=== PATIENT | female | born 1960 | race Caucasian/White ===

== ENCOUNTER 2021-01-02 05:51 | Observation (INO) | payer MEDICARE ==
[2021-01-02] MEDS ORDERED: methylPREDNISolone Sodium Succinate 125 MG/2 ML SDV IVPUSH ONE (05:54)
[2021-01-02] MEDS ORDERED: Albuterol/Ipratropium 3.0-0.5 MG/3 ML Neb Soln NEB ONE (05:54)
[2021-01-02] MEDS ORDERED: Albuterol/Ipratropium 3.0-0.5 MG/3 ML Neb Soln ONE (05:58)
--- NOTE | 2021-01-02 06:03 | EDM.PDOC ---
ED HPI GENERAL MEDICAL PROBLEM - General Chief Complaint: Respiratory Problem Stated Complaint: CAN'T BREATH Time Seen by Provider: 01/02/21 05:53 Source of Information: Reports: Patient History Limitations: Reports: Respiratory Distress - History of Present Illness INITIAL COMMENTS - FREE TEXT/NARRATIVE: Joceline is a 60-year-old female presenting to the ED for evaluation of difficulty breathing. She states that tonight she became so short of breath that she could even get 1 or 2 words out. She does have a history for COPD and continues to smoke 1/2 pack of cigarettes a day. She also was reportedly having an upcoming coronary angiogram for some heart issues. She presents tachypneic, in respiratory distress with tachycardia, diaphoresis, and course Rales bilaterally. She is quite anxious. Patient does live in a home that has air conditioning. After receiving the DuoNeb she was able to talk a little bit more. The patient reports that she had a onset of dyspnea that woke her from sleep around 3:30 or 4 AM this morning. The more she tried to take a deep breath the last she was able to take 1 making her more and more anxious. Patient is also experiencing significant tachycardia with heart rate in 130s. - Related Data Allergies Allergy/AdvReac Type Severity Reaction Status Date / Time Iodinated Contrast Media Allergy Airway Verified 01/02/21 05:55 Tightness prochlorperazine Allergy Hives Verified 01/02/21 05:54 [From Compazine] Home Meds: Home Meds DULoxetine [Cymbalta] 60 mg PO DAILY 01/02/21 [History] LORazepam [Ativan] 1 mg PO Q6H 01/02/21 [History] Levothyroxine [Synthroid] 88 mcg PO ACBREAKFAST 01/02/21 [History] predniSONE [Prednisone] 4 mg PO DAILY 01/02/21 [History] ED ROS GENERAL - Review of Systems Review Of Systems: See Below Constitutional: Reports: Diaphoresis HEENT: Reports: No Symptoms Respiratory: Reports: Shortness of Breath, Cough Cardiovascular: Reports: Chest Pain, Palpitations Endocrine: Reports: No Symptoms GI/Abdominal: Reports: No Symptoms : Reports: No Symptoms Musculoskeletal: Reports: No Symptoms Skin: Reports: No Symptoms Neurological: Reports: No Symptoms Psychiatric: Reports: Anxiety Hematologic/Lymphatic: Reports: No Symptoms Immunologic: Reports: No Symptoms ED EXAM, GENERAL - Physical Exam Exam: See Below Exam Limited By: Respiratory Distress General Appearance: Alert, Anxious, Severe Distress Eye Exam: Bilateral Eye: EOMI, PERRL Nose: Normal Inspection Throat/Mouth: Normal Inspection, Normal Oropharynx, Normal Voice, No Airway Compromise Head: Atraumatic, Normocephalic Neck: Normal Inspection, Supple Respiratory/Chest: Decreased Breath Sounds (Markedly diminished breath sounds bilaterally), Rales (Coarse Rales throughout the lung smith bilaterally), Accessory Muscle Use, Retractions, Prolonged Expiration Cardiovascular: Normal Peripheral Pulses, Regular Rate, Rhythm, Tachycardia Peripheral Pulses: 2+: Radial (L), Radial (R) GI/Abdominal: Normal Bowel Sounds, Soft, Non-Tender Extremities: Normal Inspection, No Pedal Edema Neurological: Alert, Oriented, Normal Cognition, No Motor/Sensory Deficits Psychiatric: Normal Affect, Anxious Skin Exam: Warm, Dry, Diaphoretic, Pallor. No: Cyanosis Lymphatic: No Adenopathy #1 Interpretation EKG Date: 01/02/21 Time: 06:00 Rhythm: NSR Rate (Beats/Min): 121 [place]: LAD-Left [place] Deviation P-Wave: Enlarged (Left atrial enlargement) QRS: Normal (Poor R wave progression in the precordial leads. LVH by voltage criteria.) ST-T: Normal (Nonspecific ST-T changes.) QT: Normal Comparison: NA - No Prior EKG Course - Vital Signs Last Recorded V/S: Last Vital Signs Temp 35.3 C L 01/02/21 06:15 Pulse 130 H 01/02/21 06:15 Resp 35 H 01/02/21 06:15 BP 174/85 H 01/02/21 06:15 Pulse Ox 76 L 01/02/21 06:15 - Orders/Labs/Meds Orders: Active Orders 24 hr Category Date Time Status EKG Documentation Completion [RC] ASDIRECTED Care 01/02/21 05:54 Active RT Aerosol Therapy [RC] ASDIRECTED Care 01/02/21 05:54 Active COVID-19/FLU A+B/RSV [MOLEC] Stat Lab 01/02/21 07:06 Ordered Isolation [COMM] Stat Oth 01/02/21 07:07 Ordered EKG 12 Lead [EK] Routine Ther 01/02/21 05:54 Ordered Labs: Laboratory Tests 01/02/21 01/02/21 01/02/21 Range/Units 05:56 05:56 06:21 WBC 9.9 (4.5-11.0) K/uL RBC 4.32 (3.30-5.50) M/uL Hgb 13.4 (12.0-15.0) g/dL Hct 41.6 (36.0-48.0) % MCV 96 (80-98) fL MCH 31 (27-31) pg MCHC 32 (32-36) % Plt Count 281 (150-400) K/uL Neut % (Auto) 25.8 L (36-66) % Lymph % (Auto) 61.5 H (24-44) % [place] % (Auto) 9.5 H (2-6) % Eos % (Auto) 2.3 (2-4) % Baso % (Auto) 0.9 (0-1) % Puncture Site Rt radial ABG pH 7.333 L (7.350-7.450) ABG pCO2 43.7 H (35.0-42.0) mmHg ABG pO2 50.5 L (75.0-100.0) mmHg ABG HCO3 22.5 (22.0-26.0) mmol/L ABG Total CO2 20.4 L (21.0-25.0) mmol/L ABG O2 Saturation 82.3 L (95.0-98.0) % ABG O2 Content 14.9 L (15.0-23.0) %vol ABG Base Excess -2.8 mm/L ABG Hemoglobin 13.3 (12.0-16.0) g/dL ABG Oxyhemoglobin 79.6 % ABG Carboxyhemoglobin 2.6 H (0.0-1.6) % ABG Methemoglobin 0.7 % Josue Test Pass O2 Delivery Device Nasal cannula Oxygen Flow Rate 4.0 L Sodium 142 (140-148) mmol/L Potassium 3.4 L (3.6-5.2) mmol/L Chloride 105 (100-108) mmol/L Carbon Dioxide 23 (21-32) mmol/L Anion Gap 17.4 H (5.0-14.0) mmol/L BUN 17 (7-18) mg/dL Creatinine 1.1 H (0.6-1.0) mg/dL Est Cr Clr Drug Dosing 49.55 mL/min Estimated GFR (MDRD) 51 L (>60) Glucose 232 H (74-106) mg/dL Calcium 8.7 (8.5-10.1) mg/dL Total Bilirubin 0.5 (0.2-1.0) mg/dL AST 43 H (15-37) U/L ALT 38 (12-78) U/L Alkaline Phosphatase 115 (46-116) U/L Troponin I < 0.017 (0.000-0.056) ng/mL Total Protein 7.3 (6.4-8.2) g/dL Albumin 3.3 L (3.4-5.0) g/dL Globulin 4.0 H (2.3-3.5) g/dL Albumin/Globulin Ratio 0.8 L (1.2-2.2) Meds: Medications Discontinued Medications Generic Name Dose Route Start Last Admin Trade Name Freq PRN Reason Stop Dose Admin Albuterol/Ipratropium 3 ml 01/02/21 05:54 01/02/21 05:58 Albuterol/Ipratropium 3.0-0.5 Mg/3 Ml Neb Soln NEB 01/02/21 05:55 3 ml ONETIME ONE Administration Methylprednisolone Sodium Succinate 125 mg 01/02/21 05:54 01/02/21 06:09 Methylprednisolone Sodium Succinate 125 Mg/2 Ml Sdv IVPUSH 01/02/21 05:55 125 mg ONETIME ONE Administration - Radiology Interpretation Free Text/Narrative:: I reviewed the 1 view chest x-ray as well as the report. There is hyperinflation of both lungs with basilar atelectasis or scarring. - Re-Assessments/Exams Free Text/Narrative Re-Assessment/Exam: 01/02/21 06:19 patient received a DuoNeb and Solu-Medrol 125 mg IV push with significant improvement in her breathing. I reviewed her EKG which shows sinus tachycardia with nonspecific ST-T changes and LVH and left atrial enlargement by voltage criteria. There was no evidence for ST elevation or significant depression. We did obtain an ABG on 4 L nasal cannula. The patient does not normally wear oxygen at home despite having a history for COPD. 01/02/21 06:43 I did review the patient's labs showing a CBC with a leukocyte count of 9.9, hemoglobin of 13.4, hematocrit of 41.6, and platelet count of 281,000. Her comprehensive metabolic panel shows a sodium 142, potassium 3.4, chloride of 105, bicarbonate of 23, BUN of 17 with a creatinine 1.1 and a glucose of 232. The GFR is calculated at 49.5. Troponin is negative at less than 0.017. An ABG was obtained on 4 L via nasal cannula showing a pH of 7.33, PCO2 of 43.7, PO2 of 50.5, and a bicarb of 22.5 with a carboxyhemoglobin of 2.6 and a oxygenation sat of 82%. Although the patient is improved since receiving the DuoNeb and Solu-Medrol, she is still requiring a fair amount of oxygen to stay above 88%. She is not normally on oxygen at home. A chest x-ray was obtained showing hyperinflation of the lungs 01/02/21 07:08 We will arrange for mission of the patient for COPD exacerbation. She is still requiring 6 L of oxygen on a nonrebreather. I discussed the case with Jordon Alcala MD who will evaluate the patient for admission. Departure - Departure Time of Disposition: 07:09 Disposition: Admitted As Inpatient 67 Clinical Impression: Acute exacerbation of chronic obstructive pulmonary disease (COPD) - Discharge Information Referrals: PCP,None [Primary Care Provider] - Forms: ED Department Discharge Sepsis Event Note (ED) - Focused Exam Vital Signs: Vital Signs Temp Pulse Resp BP Pulse Ox 01/02/21 06:15 35.3 C L 130 H 35 H 174/85 H 76 L - Problem List & Annotations (1) Acute exacerbation of chronic obstructive pulmonary disease (COPD) SNOMED Code(s): 930911090 Code(s): J44.1 - CHRONIC OBSTRUCTIVE PULMONARY DISEASE W (ACUTE) EXACERBATION Status: Acute Priority: High Current Visit: Yes - Problem List Review Problem List Initiated/Reviewed/Updated: Yes - My Orders Last 24 Hours: My Active Orders 01/02/21 05:54 EKG Documentation Completion [RC] ASDIRECTED RT Aerosol Therapy [RC] ASDIRECTED EKG 12 Lead [EK] Routine 01/02/21 07:06 COVID-19/FLU A+B/RSV [MOLEC] Stat 01/02/21 07:07 Isolation [COMM] Stat - Assessment/Plan Last 24 Hours: My Active Orders 01/02/21 05:54 EKG Documentation Completion [RC] ASDIRECTED RT Aerosol Therapy [RC] ASDIRECTED EKG 12 Lead [EK] Routine 01/02/21 07:06 COVID-19/FLU A+B/RSV [MOLEC] Stat 01/02/21 07:07 Isolation [COMM] Stat
--- NOTE | 2021-01-02 07:05 | CRLCR ---
For Patients: As a result of the Century Cures Act, medical imaging exams and procedure reports are released immediately into your electronic medical record. You may view this report before your referring provider. If you have questions, please contact your health care provider. Indication: COPD, shortness of breath Comparison: None available. Technique: Single AP view chest Findings: There is hyperinflation and chronic interstitial change. There are increased interstitial markings likely representing pulmonary edema with basilar atelectasis versus scar. There is no pneumothorax or pleural effusion. The cardiac silhouette is mildly prominent. The bony thorax is grossly intact. Impression: Hyperinflation and chronic interstitial changes with mildly increased interstitial markings likely representing pulmonary edema with basilar atelectasis versus scar. Dictated by Dante Fox MD @ 01/02/2021 7:05:[address] Dante Fox @ Jan 02 2021 7:05AM
[2021-01-02 08:03] LABS: CORONAVIRUS COVID-19 NAA NEGATIVE (NEGATIVE)
--- NOTE | 2021-01-02 09:24 | PCM.HP.2 ---
H&P History of Present Illness - General Date of Service: 01/02/21 Admit Problem/Dx: Admission Diagnosis/Problem Admission Diagnosis/Problem Acute exacerbation of chronic obstructive airways disease Source of Information: Patient, Family, Provider History Limitations: Reports: No Limitations - History of Present Illness Initial Comments - Free Text/Narative: CC: I couldn't breath HPI: Joceline presents to the emergency room today with acute onset of shortness of breath that woke her from sleep early this morning. She does report feeling a little bit short of breath yesterday in the afternoon and evening while she was out fishing but this seemed to get better in the evening. 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 She does report some cough that is slightly more than usual as well as some yellow sticky sputum that started this morning. She is not aware of any fevers. No reports of chest pain or pleuritic chest pain. She did travel up here several days ago from [place]. No obvious sick contacts. She has had her Covid vaccinations. No obvious triggers for this event other than possibly all of the smoke in the atmosphere. No recent nausea or abdominal pain. No change in bowel or bladder habits. No new medications. Work-up in the emergency room revealed acute respiratory failure with hypoxia and initially a fairly high supplemental oxygen requirement. She had mild CO2 retention with a PCO2 of 43. A nebulizer did improve her situation with some. Chest x-ray did not suggest pneumonia. The plan is for admission to manage an exacerbation of her COPD possibly secondary to the smoke versus possibly a bronchitis. - Related Data Allergies/Adverse Reactions: Allergies Allergy/AdvReac Type Severity Reaction Status Date / Time Iodinated Contrast Media Allergy Airway Verified 01/02/21 05:55 Tightness prochlorperazine Allergy Hives Verified 01/02/21 05:54 [From Compazine] Home Medications: Home Meds DULoxetine [Cymbalta] 60 mg PO DAILY 01/02/21 [History] LORazepam [Ativan] 1 mg PO Q6H 01/02/21 [History] Levothyroxine [Synthroid] 88 mcg PO ACBREAKFAST 01/02/21 [History] Pantoprazole [ProTONIX] 40 mg PO DAILY 01/02/21 [History] predniSONE [Prednisone] 4 mg PO DAILY 01/02/21 [History] Past Medical History HEENT History: Reports: Impaired Vision Cardiovascular History: Reports: Arrhythmia Respiratory History: Reports: COPD Gastrointestinal History: Reports: GERD 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 exporatory lap Oncologic Surgical History: Reports: Biopsy of Breast, Mastectomy Social & Family History - Family History Cardiac: Reports: [place] (father) : Reports: Renal Disease/Insufficiency (mother with kidney failure) Oncologic: Reports: Lung (sister) - Tobacco Use Tobacco Use Status *Q: Current Every Day Tobacco User Years of Tobacco use: 40 Packs/Tins Daily: 0.1 - Caffeine Use Caffeine Use: Reports: None - Alcohol Use Alcohol Use History: No - Recreational Drug Use Recreational Drug Use: No H&P Review of Systems - Review of Systems: Review Of Systems: See Below Free Text/Narrative: A complete 12 point review of systems was obtained. Pertinent positives and negatives are noted in the history of present illness. All other systems were reviewed and were negative except as noted. Exam - Exam Exam: See Below - Vital Signs Vital Signs: Last Vital Signs Temp 35.3 C L 01/02/21 06:15 Pulse 130 H 01/02/21 06:15 Resp 35 H 01/02/21 06:15 BP 174/85 H 01/02/21 06:15 Pulse Ox 76 L 01/02/21 06:15 Weight: 68.039 kg - Exam Quality Assessment: Supplemental Oxygen General: Alert, Oriented, Cooperative. No: Mild Distress HEENT: Conjunctiva Clear, Mucosa Moist & [place]. No: Scleral Icterus Neck: Supple, Trachea Midline. No: JVD Lungs: Normal Respiratory Effort, Crackles (rare both bases ), Wheezing (rare scattered ). No: Rhonchi Cardiovascular: Regular Rhythm, Tachycardia. No: Systolic Murmur GI/Abdominal Exam: Normal Bowel Sounds, Soft, Non-Tender, No Distention Back Exam: Normal Inspection, Full Range of Motion Extremities: No Pedal Edema. No: Increased Warmth Peripheral Pulses: 2+: Dorsalis Pedis (L), Dorsalis Pedis (R) Skin: Warm, Dry Neuro Extensive - Mental Status: Alert, Oriented x3, Nl Response to Commands Neuro Extensive - Motor, Sensory, Reflexes: No: Dysarthria, Abnormal Motor, Lyndon mor Psychiatric: Alert, Normal Affect - Patient Data Lab Results Last 24 hrs: Laboratory Results - last 24 hr 01/02/21 01/02/21 01/02/21 Range/Units 05:56 05:56 06:21 WBC 9.9 (4.5-11.0) K/uL RBC 4.32 (3.30-5.50) M/uL Hgb 13.4 (12.0-15.0) g/dL Hct 41.6 (36.0-48.0) % MCV 96 (80-98) fL MCH 31 (27-31) pg MCHC 32 (32-36) % Plt Count 281 (150-400) K/uL Neut % (Auto) 25.8 L (36-66) % Lymph % (Auto) 61.5 H (24-44) % [place] % (Auto) 9.5 H (2-6) % Eos % (Auto) 2.3 (2-4) % Baso % (Auto) 0.9 (0-1) % Puncture Site Rt radial ABG pH 7.333 L (7.350-7.450) ABG pCO2 43.7 H (35.0-42.0) mmHg ABG pO2 50.5 L (75.0-100.0) mmHg ABG HCO3 22.5 (22.0-26.0) mmol/L ABG Total CO2 20.4 L (21.0-25.0) mmol/L ABG O2 Saturation 82.3 L (95.0-98.0) % ABG O2 Content 14.9 L (15.0-23.0) %vol ABG Base Excess -2.8 mm/L ABG Hemoglobin 13.3 (12.0-16.0) g/dL ABG Oxyhemoglobin 79.6 % ABG Carboxyhemoglobin 2.6 H (0.0-1.6) % ABG Methemoglobin 0.7 % Josue Test Pass O2 Delivery Device Nasal cannula Oxygen Flow Rate 4.0 L Sodium 142 (140-148) mmol/L Potassium 3.4 L (3.6-5.2) mmol/L Chloride 105 (100-108) mmol/L Carbon Dioxide 23 (21-32) mmol/L Anion Gap 17.4 H (5.0-14.0) mmol/L BUN 17 (7-18) mg/dL Creatinine 1.1 H (0.6-1.0) mg/dL Est Cr Clr Drug Dosing 49.55 mL/min Estimated GFR (MDRD) 51 L (>60) Glucose 232 H (74-106) mg/dL Calcium 8.7 (8.5-10.1) mg/dL Total Bilirubin 0.5 (0.2-1.0) mg/dL AST 43 H (15-37) U/L ALT 38 (12-78) U/L Alkaline Phosphatase 115 (46-116) U/L Troponin I < 0.017 (0.000-0.056) ng/mL Total Protein 7.3 (6.4-8.2) g/dL Albumin 3.3 L (3.4-5.0) g/dL Globulin 4.0 H (2.3-3.5) g/dL Albumin/Globulin Ratio 0.8 L (1.2-2.2) Influenza Type A RNA (NEGATIVE) RSV RNA (INAAT) (NEGATIVE) Influenza Type B RNA (NEGATIVE) SARS-CoV-2 RNA (ANDREW) (NEGATIVE) 01/02/21 Range/Units 07:06 WBC (4.5-11.0) K/uL RBC (3.30-5.50) M/uL Hgb (12.0-15.0) g/dL Hct (36.0-48.0) % MCV (80-98) fL MCH (27-31) pg MCHC (32-36) % Plt Count (150-400) K/uL Neut % (Auto) (36-66) % Lymph % (Auto) (24-44) % [place] % (Auto) (2-6) % Eos % (Auto) (2-4) % Baso % (Auto) (0-1) % Puncture Site ABG pH (7.350-7.450) ABG pCO2 (35.0-42.0) mmHg ABG pO2 (75.0-100.0) mmHg ABG HCO3 (22.0-26.0) mmol/L ABG Total CO2 (21.0-25.0) mmol/L ABG O2 Saturation (95.0-98.0) % ABG O2 Content (15.0-23.0) %vol ABG Base Excess mm/L ABG Hemoglobin (12.0-16.0) g/dL ABG Oxyhemoglobin % ABG Carboxyhemoglobin (0.0-1.6) % ABG Methemoglobin % Josue Test O2 Delivery Device Oxygen Flow Rate L Sodium (140-148) mmol/L Potassium (3.6-5.2) mmol/L Chloride (100-108) mmol/L Carbon Dioxide (21-32) mmol/L Anion Gap (5.0-14.0) mmol/L BUN (7-18) mg/dL Creatinine (0.6-1.0) mg/dL Est Cr Clr Drug Dosing mL/min Estimated GFR (MDRD) (>60) Glucose (74-106) mg/dL Calcium (8.5-10.1) mg/dL Total Bilirubin (0.2-1.0) mg/dL AST (15-37) U/L ALT (12-78) U/L Alkaline Phosphatase (46-116) U/L Troponin I (0.000-0.056) ng/mL Total Protein (6.4-8.2) g/dL Albumin (3.4-5.0) g/dL Globulin (2.3-3.5) g/dL Albumin/Globulin Ratio (1.2-2.2) Influenza Type A RNA Negative (NEGATIVE) RSV RNA (INAAT) Negative (NEGATIVE) Influenza Type B RNA Negative (NEGATIVE) SARS-CoV-2 RNA (ANDREW) Negative (NEGATIVE) Result Diagrams: 01/02/21 05:56 01/02/21 05:56 Imaging Impressions Last 24 hrs: CXR-image personally reviewed-there is hyperinflation with scattered chronic interstitial changes. No effusions. Heart size is normal. #1 Interpretation EKG Date: 01/02/21 Rhythm: NSR Rate (Beats/Min): 121 [place]: Normal P-Wave: Present QRS: Normal ST-T: Normal QT: Normal Comparison: NA - No Prior EKG Sepsis Event Note - Evaluation Sepsis Screening Result: No Definite Risk - Focused Exam Vital Signs: Vital Signs Temp Pulse Resp BP Pulse Ox 01/02/21 06:15 35.3 C L 130 H 35 H 174/85 H 76 L *Q Meaningful Use (ADM) - VTE Risk Assess *Q Each Risk Factor Represents 1 Point: Age 41 - 59 years, Abnormal Pulmonary Fun ction (COPD) Total Score 1 Point Risk Factors: 2 Each Risk Factor Represents 2 Points: Malignancy (present or previous) Total Score 2 Point Risk Factors: 2 Each Risk Factor Represents 3 Points: None Total Score 3 Point Risk Factors: 0 Each Risk Factor Represents 5 Points: None Total Score 5 Point Risk Factors: 0 Venous Thromboembolism Risk Factor Score *Q: 4 - Problem List (1) Acute exacerbation of chronic obstructive pulmonary disease (COPD) SNOMED Code(s): 519566718 ICD Code: J44.1 - CHRONIC OBSTRUCTIVE PULMONARY DISEASE W (ACUTE) EXACERBATION Status: Acute Priority: High Current Visit: Yes (2) Acute respiratory failure with hypoxia SNOMED Code(s): 59727752, 500093320 ICD Code: J96.01 - ACUTE RESPIRATORY FAILURE WITH HYPOXIA Status: Acute Current Visit: Yes (3) Tobacco dependence syndrome SNOMED Code(s): 56153364 ICD Code: F17.200 - NICOTINE DEPENDENCE, UNSPECIFIED, UNCOMPLICATED Status: Chronic Current Visit: Yes (4) HFrEF (heart failure with reduced ejection fraction) SNOMED Code(s): 155980069 ICD Code: I50.20 - UNSPECIFIED SYSTOLIC (CONGESTIVE) HEART FAILURE Status: Chronic Current Visit: Yes Problem List Initiated/Reviewed/Updated: Yes Orders Last 24hrs: Active Orders 24 hr Category Date Time Status Patient Status Manage Transfer [TRANSFER] Routine ADT 01/02/21 09:13 Ordered EKG Documentation Completion [RC] ASDIRECTED Care 01/02/21 05:54 Active RT Aerosol Therapy [RC] ASDIRECTED Care 01/02/21 05:54 Active Isolation [COMM] Stat Oth 01/02/21 07:07 Ordered Resuscitation Status Routine Resus Stat 01/02/21 09:15 Ordered EKG 12 Lead [EK] Routine Ther 01/02/21 05:54 Ordered Assessment/Plan Comment:: ASSESSMENT AND PLAN - COPD with acute exacerbation-possibly secondary to bronchitis versus possibly secondary to environmental exposure to smoke or combination of these 2. She is currently hypoxic and requiring supplemental oxygen. She is improving with smaller O2 requirements now than a couple of hours ago. -Antibiotic coverage with a azithromycin -IV steroids this morning, transition to prednisone this afternoon -Supplement oxygen as needed -Scheduled and as needed nebulizers Heart failure with reduced ejection fraction-recently found to have an ejection fraction of 35% on echocardiogram. Angiogram planned for next week. No evidence on examination to suggest congestive heart failure. -Continue medical management Tobacco dependence- -Encourage cessation History of breast cancer- Maintenance issues - -DVT prophylaxis-SCDs -GI prophylaxis-PPI -Nutrition-regular -Ingram catheter-not indicated CODE STATUS -full code Admission justification -this patient will be referred to observation status to initiate antibiotics and supplemental oxygen but I would anticipate she will be able to discharge tomorrow. Disposition -I anticipate discharge home after the hospital stay Primary care physician -Rosaura Alcala M.D. - Mortality Measure Prognosis:: Good
[2021-01-02] MEDS ORDERED: Albuterol 0.083% 2.5 MG/3 ML Neb Soln NEB PRN (09:43)
[2021-01-02] MEDS ORDERED: Ondansetron 4 MG Tab.DIS PO PRN (09:43)
[2021-01-02] MEDS ORDERED: Non-Formulary Medication 1 Each (Lorazepam [Ativan] 1 MG Tablet) PO SCH (09:43)
[2021-01-02] MEDS ORDERED: Ondansetron 4 MG/2 ML SDV IV PRN (09:43)
[2021-01-02] MEDS ORDERED: Acetaminophen 325 MG Tab PO PRN (09:43)
[2021-01-02] MEDS ORDERED: LORazepam 2 MG/ML SDV IVPUSH PRN (09:43)
[2021-01-02] MEDS ORDERED: Melatonin 3 MG Tab PO PRN (09:43)
[2021-01-02] MEDS ORDERED: Magnesium Hydroxide 400 MG/5 ML Susp 30 ML Cup PO PRN (09:43)
[2021-01-02] MEDS ORDERED: Azithromycin 250 MG Tab PO ONE (10:30)
[2021-01-02] MEDS ORDERED: Potassium Chloride 20 MEQ Tab.ER PO ONE (10:30)
[2021-01-02] MEDS: Albuterol/Ipratropium 3.0-0.5 MG/3 ML Neb Soln NEB SCH ×3 (10:37→21:01)
[2021-01-02] MEDS: Lactobacillus Rhamnosus GG (Probiotic) Cap PO SCH ×2 (10:44→21:02)
[2021-01-02] MEDS: LORazepam 1 MG Tab PO SCH ×3 (10:46→21:02)
[2021-01-02] MEDS ORDERED: predniSONE 20 MG Tab PO ONE (12:00)
[2021-01-02] MEDS: DULoxetine 30 MG Cap PO SCH (14:30)
[2021-01-02] MEDS: Levothyroxine 88 MCG Tab PO SCH (14:31)
[2021-01-02] MEDS: Pantoprazole 40 MG Tab.CR PO SCH (18:27)
[2021-01-03] MEDS: LORazepam 1 MG Tab PO SCH ×4 (03:20→21:38)
[2021-01-03] MEDS: Albuterol/Ipratropium 3.0-0.5 MG/3 ML Neb Soln NEB SCH ×4 (07:03→21:38)
[2021-01-03] MEDS ORDERED: Non-Formulary Medication 1 Each (Levothyroxine [Synthroid] 88 MCG Tablet) PO SCH (07:30)
[2021-01-03] MEDS ORDERED: predniSONE 20 MG Tab PO SCH (08:00)
[2021-01-03] MEDS: Azithromycin 250 MG Tab PO SCH (08:03)
[2021-01-03] MEDS: Lactobacillus Rhamnosus GG (Probiotic) Cap PO SCH ×2 (08:03→20:35)
[2021-01-03] MEDS: DULoxetine 30 MG Cap PO SCH (08:10)
[2021-01-03] MEDS: Levothyroxine 88 MCG Tab PO SCH (08:11)
[2021-01-03] MEDS ORDERED: Non-Formulary Medication 1 Each (Duloxetine [Cymbalta] 60 MG Cap) PO SCH (09:00)
--- NOTE | 2021-01-03 09:56 | PCM.PN ---
- General Info Date of Service: 01/03/21 Subjective Update: Patient had an episode overnight where she became quite short of breath going to the bathroom early in the morning. No chest pain at the time. She did recover after getting back into bed and resting. She has been tachycardic most of the night with heart rates in the 120s. She feels weak and fatigued. Still requiring supplemental oxygen. No fevers. CT pulmonary angiogram was completed today and did not show evidence for pulmonary embolism but did show some pulmonary edema. - Review of Systems Pulmonary: Reports: Shortness of Breath, Cough Cardiovascular: Denies: Chest Pain - Patient Data Vitals - Most Recent: Last Vital Signs Temp 35.6 C L 01/03/21 08:16 Pulse 122 H 01/03/21 08:16 Resp 20 01/03/21 08:16 BP 112/49 L 01/03/21 08:16 Pulse Ox 92 L 01/03/21 08:16 Weight - Most Recent: 68.946 kg I&O - Last 24 Hours: Intake & Output 01/02/21 01/03/21 01/03/21 22:59 06:59 14:59 Intake Total 1160 560 Balance 1160 560 Lab Results Last 24 Hours: Laboratory Results - last 24 hr 01/03/21 01/03/21 01/03/21 Range/Units 04:00 04:00 08:18 WBC 12.6 H (4.5-11.0) K/uL RBC 4.15 (3.30-5.50) M/uL Hgb 12.9 (12.0-15.0) g/dL Hct 39.6 (36.0-48.0) % MCV 95 (80-98) fL MCH 31 (27-31) pg MCHC 33 (32-36) % Plt Count 272 (150-400) K/uL D-Dimer, Quantitative 1492.29 H (0.0-500.0) ng/mL Sodium 141 (140-148) mmol/L Potassium 4.4 (3.6-5.2) mmol/L Chloride 105 (100-108) mmol/L Carbon Dioxide 25 (21-32) mmol/L Anion Gap 11.0 (5.0-14.0) mmol/L BUN 19 H (7-18) mg/dL Creatinine 0.8 (0.6-1.0) mg/dL Est Cr Clr Drug Dosing 68.13 mL/min Estimated GFR (MDRD) > 60 (>60) Glucose 126 H (74-106) mg/dL Calcium 9.0 (8.5-10.1) mg/dL Med Orders - Current: Current Medications Acetaminophen (Acetaminophen 325 Mg Tab) 650 mg PO Q4H PRN PRN Reason: Pain (Mild 1-3)/fever Albuterol (Albuterol 0.083% 2.5 Mg/3 Ml Neb Soln) 2.5 mg NEB Q4H PRN PRN Reason: Shortness Of Breath/wheezing Last Admin: 01/03/21 03:05 Dose: 2.5 mg Documented by: Albuterol/Ipratropium (Albuterol/Ipratropium 3.0-0.5 Mg/3 Ml Neb Soln) 3 ml NEB QIDRT [facility] Last Admin: 01/03/21 07:03 Dose: 3 ml Documented by: Azithromycin (Azithromycin 250 Mg Tab) 250 mg PO DAILY [facility] Last Admin: 01/03/21 08:03 Dose: 250 mg Documented by: Diphenhydramine HCl (Diphenhydramine 50 Mg/Ml Sdv) 50 mg IVPUSH ONETIME ONE Stop: 01/03/21 09:54 Duloxetine HCl (Duloxetine 30 Mg Cap) 60 mg PO DAILY [facility] Last Admin: 01/03/21 08:10 Dose: 60 mg Documented by: Lactobacillus Rhamnosus (Lactobacillus Rhamnosus Gg (Probiotic) Cap) 1 cap PO BID [facility] Last Admin: 01/03/21 08:03 Dose: 1 cap Documented by: Levothyroxine Sodium (Levothyroxine 88 Mcg Tab) 88 mcg PO ACBREAKFAST [facility] Last Admin: 01/03/21 08:11 Dose: 88 mcg Documented by: Lorazepam (Lorazepam 2 Mg/Ml Sdv) 0.5 mg IVPUSH Q4H PRN PRN Reason: Nausea/Vomiting Lorazepam (Lorazepam 1 Mg Tab) 1 mg PO Q6H [facility] Last Admin: 01/03/21 09:21 Dose: 1 mg Documented by: Magnesium Hydroxide (Magnesium Hydroxide 400 Mg/5 Ml Susp 30 Ml Cup) 30 ml PO Q12H PRN PRN Reason: Constipation Melatonin (Melatonin 3 Mg Tab) 9 mg PO BEDTIME PRN PRN Reason: Sleep Methylprednisolone Sodium Succinate (Methylprednisolone Sodium Succinate 125 Mg/2 Ml Sdv) 62.5 mg IVPUSH ONETIME ONE Stop: 01/03/21 09:55 Ondansetron HCl (Ondansetron 4 Mg/2 Ml Sdv) 4 mg IV Q6H PRN PRN Reason: Nausea/Vomiting Ondansetron HCl (Ondansetron 4 Mg Tab.Dis) 4 mg PO Q6H PRN PRN Reason: Nausea able to take PO Pantoprazole Sodium (Pantoprazole 40 Mg Tab.Cr) 40 mg PO ACDINNER [facility] Last Admin: 01/02/21 18:27 Dose: 40 mg Documented by: Prednisone (Prednisone 20 Mg Tab) 40 mg PO WITHBREAKFAST [facility] Last Admin: 01/03/21 08:03 Dose: 40 mg Documented by: Senna/Docusate Sodium (Docusate Sodium/Sennosides 50-8.6 Mg Tab) 1 tab PO BID PRN PRN Reason: Constipation Discontinued Medications Albuterol/Ipratropium (Albuterol/Ipratropium 3.0-0.5 Mg/3 Ml Neb Soln) 3 ml NEB ONETIME ONE Stop: 01/02/21 05:55 Last Admin: 01/02/21 05:58 Dose: 3 ml Documented by: Albuterol/Ipratropium (Albuterol/Ipratropium 3.0-0.5 Mg/3 Ml Neb Soln) Confirm Administered Dose 3 ml .ROUTE .STK-MED ONE Stop: 01/02/21 05:59 Last Admin: 01/02/21 13:25 Dose: Not Given Documented by: Azithromycin (Azithromycin 250 Mg Tab) 500 mg PO ONETIME ONE Stop: 01/02/21 10:31 Last Admin: 01/02/21 10:43 Dose: 500 mg Documented by: Methylprednisolone Sodium Succinate (Methylprednisolone Sodium Succinate 125 Mg/2 Ml Sdv) 125 mg IVPUSH ONETIME ONE Stop: 01/02/21 05:55 Last Admin: 01/02/21 06:09 Dose: 125 mg Documented by: Potassium Chloride (Potassium Chloride 20 Meq Tab.Er) 40 meq PO ONETIME ONE Stop: 01/02/21 10:31 Last Admin: 01/02/21 10:44 Dose: 40 meq Documented by: Prednisone (Prednisone 20 Mg Tab) 20 mg PO ONETIME ONE Stop: 01/02/21 12:01 Last Admin: 01/02/21 14:30 Dose: 20 mg Documented by: - Exam Quality Assessment: Supplemental Oxygen General: Alert, Oriented, Cooperative, No Acute Distress Lungs: Normal Respiratory Effort, Wheezing (mild end exp right upper lung ). No : Crackles Cardiovascular: Regular Rhythm, No Murmurs, Tachycardia GI/Abdominal Exam: Soft, No Distention Extremities: No Pedal Edema, Other (right leg slightly larger than the left ). No: Increased Warmth Skin: Warm, Dry Psy/Mental Status: Alert, Normal Affect - Patient Data Lab Results Last 24 hrs: Laboratory Results - last 24 hr 01/03/21 01/03/21 01/03/21 Range/Units 04:00 04:00 08:18 WBC 12.6 H (4.5-11.0) K/uL RBC 4.15 (3.30-5.50) M/uL Hgb 12.9 (12.0-15.0) g/dL Hct 39.6 (36.0-48.0) % MCV 95 (80-98) fL MCH 31 (27-31) pg MCHC 33 (32-36) % Plt Count 272 (150-400) K/uL D-Dimer, Quantitative 1492.29 H (0.0-500.0) ng/mL Sodium 141 (140-148) mmol/L Potassium 4.4 (3.6-5.2) mmol/L Chloride 105 (100-108) mmol/L Carbon Dioxide 25 (21-32) mmol/L Anion Gap 11.0 (5.0-14.0) mmol/L BUN 19 H (7-18) mg/dL Creatinine 0.8 (0.6-1.0) mg/dL Est Cr Clr Drug Dosing 68.13 mL/min Estimated GFR (MDRD) > 60 (>60) Glucose 126 H (74-106) mg/dL Calcium 9.0 (8.5-10.1) mg/dL Result Diagrams: 01/03/21 04:00 01/03/21 04:00 Sepsis Event Note - Evaluation Sepsis Screening Result: No Definite Risk - Focused Exam Vital Signs: Vital Signs Temp Pulse Resp BP Pulse Ox 01/03/21 08:16 35.6 C L 122 H 20 112/49 L 92 L 01/03/21 04:25 35.8 C L 121 H 20 122/52 L 92 L 01/03/21 03:21 36.0 C L 131 H 20 140/76 93 L 01/03/21 03:10 36.0 C L 138 H 24 H 131/109 H 94 L 01/03/21 03:05 36.0 C L 140 H 24 H 183/120 H 86 L 01/02/21 22:13 35.6 C L 116 H 18 94/40 L 96 - Problem List & Annotations (1) Acute exacerbation of chronic obstructive pulmonary disease (COPD) SNOMED Code(s): 116468973 Code(s): J44.1 - CHRONIC OBSTRUCTIVE PULMONARY DISEASE W (ACUTE) EXACERBATION Status: Acute Priority: High Current Visit: Yes (2) Acute respiratory failure with hypoxia SNOMED Code(s): 61812252, 632170358 Code(s): J96.01 - ACUTE RESPIRATORY FAILURE WITH HYPOXIA Status: Acute Current Visit: Yes (3) Tobacco dependence syndrome SNOMED Code(s): 67995774 Code(s): F17.200 - NICOTINE DEPENDENCE, UNSPECIFIED, UNCOMPLICATED Status: Chronic Current Visit: Yes (4) HFrEF (heart failure with reduced ejection fraction) SNOMED Code(s): 011887382 Code(s): I50.20 - UNSPECIFIED SYSTOLIC (CONGESTIVE) HEART FAILURE Status: Chronic Current Visit: Yes - Problem List Review Problem List Initiated/Reviewed/Updated: Yes - My Orders Last 24 Hours: My Active Orders 01/02/21 09:15 Resuscitation Status Routine 01/02/21 09:43 Acetaminophen [TylenoL] 650 mg PO Q4H PRN Albuterol [Proventil Neb Soln] 2.5 mg NEB Q4H PRN Docusate Sodium/Sennosides [Senna Plus] 1 tab PO BID PRN LORazepam [Ativan] 0.5 mg IVPUSH Q4H PRN Magnesium Hydroxide [Milk of Magnesia] 30 ml PO Q12H PRN Melatonin 9 mg PO BEDTIME PRN Ondansetron [Zofran ODT] 4 mg PO Q6H PRN Ondansetron [Zofran] 4 mg IV Q6H PRN 01/02/21 09:43 Patient Status [ADT] Routine Antiembolic Devices [RC] .Routine Intake and Output [RC] QSHIFT Notify Provider Vital Signs [RC] ASDIRECTED Oxygen Therapy [RC] PRN RT Aerosol Therapy [RC] ASDIRECTED Up With Assistance [RC] ASDIRECTED VTE/DVT Education [RC] Per Unit Routine Vital Signs [RC] Q4H Sequential Compression Device [OM.PC] Routine 01/02/21 10:00 LORazepam [Ativan] 1 mg PO Q6H 01/02/21 11:00 Albuterol/Ipratropium [DuoNeb 3.0-0.5 MG/3 ML] 3 ml NEB QIDRT 01/02/21 Lunch Regular Diet [DIET] 01/02/21 14:00 DULoxetine [Cymbalta] 60 mg PO DAILY Levothyroxine [Synthroid] 88 mcg PO ACBREAKFAST 01/02/21 18:15 Pantoprazole [ProTONIX] 40 mg PO ACDINNER 01/02/21 21:00 Lactobacillus Rhamnosus GG [Culturelle] 1 cap PO BID 01/03/21 08:00 predniSONE 40 mg PO WITHBREAKFAST 01/03/21 09:00 Azithromycin [Zithromax] 250 mg PO DAILY 01/03/21 09:53 diphenhydrAMINE [Benadryl] 50 mg IVPUSH ONETIME ONE 01/03/21 09:54 Ang Chest [CT] Routine methylPREDNISolone Sod Succ [Solu-MEDROL] 62.5 mg IVPUSH ONETIME ONE 01/04/21 05:00 BASIC METABOLIC PANEL,BMP [CHEM] Timed CBC W/O DIFF,HEMOGRAM [HEME] Timed (1) - Plan Plan:: ASSESSMENT AND PLAN - Heart failure with reduced ejection fraction-initially we were thinking the hypoxia was related to either environmental or infectious COPD exacerbation but after the CT I am leaning more towards congestive heart failure type picture though examination did not show impressive evidence for excess volume. Patient has not had any fevers. She has a known reduction in her ejection fraction and angiogram is planned in less than 1 week. -Continue antibiotic coverage with azithromycin for now -Discontinue steroids -Dose of furosemide now -Start low-dose beta-janey -Supplement oxygen as needed -Scheduled and as needed nebulizers Tobacco dependence- -Encourage cessation History of breast cancer- Maintenance issues - -DVT prophylaxis-SCDs -GI prophylaxis-PPI -Nutrition-regular Admission justification -this patient will be referred to observation status to initiate antibiotics and supplemental oxygen but I would anticipate she will be able to discharge tomorrow. Disposition -I anticipate discharge home after the hospital stay Primary care physician -Rosaura Alcala M.D.
[2021-01-03] MEDS ORDERED: Sodium Chloride 0.9% 10 ML SDV FLUSH ONE (10:22)
[2021-01-03] MEDS ORDERED: methylPREDNISolone Sodium Succinate 125 MG/2 ML SDV IVPUSH ONE (10:30)
[2021-01-03] MEDS ORDERED: diphenhydrAMINE 50 MG/ML SDV IVPUSH ONE (10:30)
[2021-01-03] MEDS ORDERED: Sodium Chloride 0.9% 100 ML IV SCH (11:00)
[2021-01-03] MEDS ORDERED: Iopamidol 755 Mg/ML 100 ML Bottle IV SCH (11:00)
--- NOTE | 2021-01-03 12:17 | CRLCT ---
For Patients: As a result of the Century Cures Act, medical imaging exams and procedure reports are released immediately into your electronic medical record. You may view this report before your referring provider. If you have questions, please contact your health care provider. INDICATION: Hypoxia. Tachycardia. Elevated D-dimer. Rule out pulmonary embolism. TECHNIQUE: Volumetric helical scanning of the thorax was performed during infusion of 80 cc of Isovue 370 contrast material IV, timing optimized for pulmonary arterial opacification. Coronal and sagittal reconstructions were obtained. COMPARISON: Chest x-ray 01/02/2021. FINDINGS: The images are of acceptable quality and demonstrate uniform vascular enhancement within the pulmonary arteries. No pulmonary arterial filling defect is identified. The heart size is normal. Calcified coronary arterial plaque is demonstrated. The pulmonary veins appear to be congested. Prominent interstitial lines in both lungs along with ground-glass opacity suggests pulmonary interstitial edema. Small pleural effusions are present bilaterally. No airway abnormality is noted. No mediastinal or hilar lymphadenopathy is demonstrated. Images of the upper abdomen are unremarkable except for postop changes and renal parenchymal cysts bilaterally. IMPRESSION: 1. Negative for pulmonary embolism. 2. Suspected CHF/fluid overload with interstitial edema and small pleural effusions bilaterally. 3. Coronary artery disease. 4. Upper abdominal postop changes. Please note that all CT scans at this facility use dose modulation, iterative reconstruction, and/or weight-based dosing when appropriate to reduce radiation dose to as low as reasonably achievable. Dictated by Yasir Milan MD @ 01/03/2021 12:17:[address] Yasir Milan @ Jan 03 2021 12:17PM
[2021-01-03] MEDS ORDERED: Furosemide 20 MG/2 ML VIAL IVPUSH ONE (14:00)
[2021-01-03] MEDS: Pantoprazole 40 MG Tab.CR PO SCH (15:13)
[2021-01-03] MEDS: Metoprolol Tartrate 25 MG Tab PO SCH ×2 (15:13→20:35)
[2021-01-04] MEDS: LORazepam 1 MG Tab PO SCH ×2 (03:23→09:01)
[2021-01-04] MEDS: Albuterol/Ipratropium 3.0-0.5 MG/3 ML Neb Soln NEB SCH (07:14)
[2021-01-04] MEDS: Levothyroxine 88 MCG Tab PO SCH (08:55)
[2021-01-04] MEDS: Lactobacillus Rhamnosus GG (Probiotic) Cap PO SCH (08:55)
[2021-01-04] MEDS: Metoprolol Tartrate 25 MG Tab PO SCH (08:56)
[2021-01-04] MEDS: DULoxetine 30 MG Cap PO SCH (08:56)
[2021-01-04] MEDS: Azithromycin 250 MG Tab PO SCH (08:56)
--- NOTE | 2021-01-04 09:32 | PCM.DCSUM1 ---
Discharge Summary - Hospital Course Brief History: 60-year-old female with history of tobacco dependence, mild COPD and recent diagnosis of heart failure with reduced ejection fraction who presented with acute onset of shortness of breath. She was admitted for management of acute respiratory failure with hypoxia initially thought secondary to a respiratory infection and COPD exacerbation. Diagnosis: Stroke: No - Discharge Data Discharge Date: 01/04/21 Discharge Disposition: Home, Self-Care 01 Condition: Fair - Referral to Home Health Primary Care Physician: PCP None - Discharge Diagnosis/Problem(s) (1) HFrEF (heart failure with reduced ejection fraction) SNOMED Code(s): 429439939 ICD Code: I50.20 - UNSPECIFIED SYSTOLIC (CONGESTIVE) HEART FAILURE Status: Acute (2) Acute exacerbation of chronic obstructive pulmonary disease (COPD) SNOMED Code(s): 366379703 ICD Code: J44.1 - CHRONIC OBSTRUCTIVE PULMONARY DISEASE W (ACUTE) EXACERBATION Status: Ruled-out Priority: High (3) Acute respiratory failure with hypoxia SNOMED Code(s): 51796944, 261540700 ICD Code: J96.01 - ACUTE RESPIRATORY FAILURE WITH HYPOXIA Status: Acute (4) Tobacco dependence syndrome SNOMED Code(s): 05069975 ICD Code: F17.200 - NICOTINE DEPENDENCE, UNSPECIFIED, UNCOMPLICATED Status: Chronic - Patient Summary/Data Hospital Course: Joceline presented to the emergency room with acute shortness of breath that woke her from sleep early in the morning of presentation. Work-up in the emergency room did reveal acute respiratory failure with hypoxia. Initially she was needing fairly high supplemental oxygen to maintain adequate saturation but did respond to treatments provided in the emergency room. Initially there was concern that this was an exacerbation of COPD with possible bronchitis. She was started on broad-spectrum antibiotics as well as steroids. There were no acute issues overnight. The morning after admission she continued to require supplemental oxygen. Symptomatically she had not improved much. She was quite tachycardic with heart rates in the 120 range. D-dimer was mildly elevated. We elected to premedicate [address] pulmonary angiogram. There is no evidence for pulmonary embolism but there was documentation of pulmonary edema. Further discussion with the patient reveals that she did have a recent echocardiogram which showed a reduced ejection fraction at 35%. She received a dose of furosemide and we did start low-dose metoprolol to help slow down her heart rate. She responded very well to these interventions. She had a good diuresis. Oxygen saturations now are 95% on room air. Her heart rate has slowed down to around 100. Blood pressures have tolerated this dose so far. Patient feels well and would like to go home. She is hoping to get bar back to home so she can be near her cardiology team. I believe she is safe and stable for discharge and the drive back to [place]. I did give her a prescription for the metoprolol to continue taking twice daily. She also has a prescription for furosemide which she can take if she starts to develop some dyspnea or lower extremity edema. She has an angiogram planned for 5 days from now for further evaluation of the heart failure with reduced ejection fraction. She was advised to seek urgent medical attention if she developed chest pain or if she had significant dyspnea. We did not continue antibiotics at the time of discharge since we suspect this is more of a pulmonary edema issue now. - Patient Instructions Diet: Heart Healthy Diet Activity: As Tolerated Showering/Bathing: May Shower Other/Special Instructions: 1. You were in the hospital for management of hypoxia. Initially we suspected a pulmonary infection but now I suspect this was caused by mild congestive heart failure and fluid accumulating in your lungs. You have improved following diuretic therapy with furosemide. We did also initiate a low-dose metoprolol to reduce the oxygen demand for your heart muscle with a slower heart rate. I recommend that she take metoprolol 12.5 mg twice daily to help keep your heart slow and the demand on the heart low. I also sent a prescription for furosemide 20 mg tablets. You may take one tab daily as needed if you develop shortness of breath or if you have lower extremity edema. Please follow-up as scheduled for your angiogram in a few days. If you develop sudden onset of shortness of breath especially if it is more than mild please seek immediate medical attention. Also, please seek emergent medical attention if you develop chest pain. - Discharge Plan *PRESCRIPTION DRUG MONITORING PROGRAM REVIEWED*: Not Applicable *COPY OF PRESCRIPTION DRUG MONITORING REPORT IN PATIENT SONAL: Not Applicable Prescriptions/Med Rec: Furosemide 20 mg PO DAILY PRN #10 tablet PRN Reason: shortness of breath or edema Metoprolol Tartrate [Lopressor] 12.5 mg PO BID #20 tablet Home Medications: Home Meds DULoxetine [Cymbalta] 60 mg PO DAILY 01/02/21 [History] LORazepam [Ativan] 1 mg PO Q6H 01/02/21 [History] Levothyroxine [Synthroid] 88 mcg PO ACBREAKFAST 01/02/21 [History] Pantoprazole [ProTONIX] 40 mg PO DAILY 01/02/21 [History] predniSONE [Prednisone] 4 mg PO DAILY 01/02/21 [History] Furosemide 20 mg PO DAILY PRN #10 tablet 01/04/21 [Rx] Metoprolol Tartrate [Lopressor] 12.5 mg PO BID #20 tablet 01/04/21 [Rx] Oxygen Therapy Mode: Room Air Patient Handouts: Heart Failure, Diagnosis, [id number] Referrals: PCP,None [Primary Care Provider] - (f/u for your angiogram as scheduled ) - Discharge Summary/Plan Comment DC Time >30 min.: No - Patient Data Vitals - Most Recent: Last Vital Signs Temp 35.9 C L 01/04/21 07:43 Pulse 108 H 01/04/21 08:56 Resp 18 01/04/21 07:43 BP 119/49 L 01/04/21 08:56 Pulse Ox 95 01/04/21 07:43 Weight - Most Recent: 66.678 kg I&O - Last 24 hours: Intake & Output 01/03/21 01/04/21 01/04/21 22:59 06:59 14:59 Intake Total 870 Output Total 200 Balance 670 Lab Results - Last 24 hrs: Laboratory Results - last 24 hr 01/04/21 01/04/21 Range/Units 05:58 05:58 WBC 16.5 H (4.5-11.0) K/uL RBC 3.97 (3.30-5.50) M/uL Hgb 12.1 (12.0-15.0) g/dL Hct 37.8 (36.0-48.0) % MCV 95 (80-98) fL MCH 31 (27-31) pg MCHC 32 (32-36) % Plt Count 285 (150-400) K/uL Sodium 140 (140-148) mmol/L Potassium 4.3 (3.6-5.2) mmol/L Chloride 103 (100-108) mmol/L Carbon Dioxide 28 (21-32) mmol/L Anion Gap 8.9 (5.0-14.0) mmol/L BUN 21 H (7-18) mg/dL Creatinine 0.8 (0.6-1.0) mg/dL Est Cr Clr Drug Dosing 68.13 mL/min Estimated GFR (MDRD) > 60 (>60) Glucose 94 (74-106) mg/dL Calcium 8.6 (8.5-10.1) mg/dL Med Orders - Current: Current Medications Acetaminophen (Acetaminophen 325 Mg Tab) 650 mg PO Q4H PRN PRN Reason: Pain (Mild 1-3)/fever Last Admin: 01/03/21 10:53 Dose: 650 mg Documented by: Albuterol (Albuterol 0.083% 2.5 Mg/3 Ml Neb Soln) 2.5 mg NEB Q4H PRN PRN Reason: Shortness Of Breath/wheezing Last Admin: 01/03/21 03:05 Dose: 2.5 mg Documented by: Albuterol/Ipratropium (Albuterol/Ipratropium 3.0-0.5 Mg/3 Ml Neb Soln) 3 ml NEB QIDRT [facility] Last Admin: 01/04/21 07:14 Dose: 3 ml Documented by: Azithromycin (Azithromycin 250 Mg Tab) 250 mg PO DAILY [facility] Last Admin: 01/04/21 08:56 Dose: 250 mg Documented by: Duloxetine HCl (Duloxetine 30 Mg Cap) 60 mg PO DAILY [facility] Last Admin: 01/04/21 08:56 Dose: 60 mg Documented by: Lactobacillus Rhamnosus (Lactobacillus Rhamnosus Gg (Probiotic) Cap) 1 cap PO BID [facility] Last Admin: 01/04/21 08:55 Dose: 1 cap Documented by: Levothyroxine Sodium (Levothyroxine 88 Mcg Tab) 88 mcg PO ACBREAKFAST [facility] Last Admin: 01/04/21 08:55 Dose: 88 mcg Documented by: Lorazepam (Lorazepam 2 Mg/Ml Sdv) 0.5 mg IVPUSH Q4H PRN PRN Reason: Nausea/Vomiting Lorazepam (Lorazepam 1 Mg Tab) 1 mg PO Q6H [facility] Last Admin: 01/04/21 09:01 Dose: Not Given Documented by: Magnesium Hydroxide (Magnesium Hydroxide 400 Mg/5 Ml Susp 30 Ml Cup) 30 ml PO Q12H PRN PRN Reason: Constipation Melatonin (Melatonin 3 Mg Tab) 9 mg PO BEDTIME PRN PRN Reason: Sleep Metoprolol Tartrate (Metoprolol Tartrate 25 Mg Tab) 12.5 mg PO BID [facility] Last Admin: 01/04/21 08:56 Dose: 12.5 mg Documented by: Ondansetron HCl (Ondansetron 4 Mg/2 Ml Sdv) 4 mg IV Q6H PRN PRN Reason: Nausea/Vomiting Ondansetron HCl (Ondansetron 4 Mg Tab.Dis) 4 mg PO Q6H PRN PRN Reason: Nausea able to take PO Pantoprazole Sodium (Pantoprazole 40 Mg Tab.Cr) 40 mg PO ACDINNER [facility] Last Admin: 01/03/21 15:13 Dose: 40 mg Documented by: Senna/Docusate Sodium (Docusate Sodium/Sennosides 50-8.6 Mg Tab) 1 tab PO BID PRN PRN Reason: Constipation Discontinued Medications Albuterol/Ipratropium (Albuterol/Ipratropium 3.0-0.5 Mg/3 Ml Neb Soln) 3 ml NEB ONETIME ONE Stop: 01/02/21 05:55 Last Admin: 01/02/21 05:58 Dose: 3 ml Documented by: Albuterol/Ipratropium (Albuterol/Ipratropium 3.0-0.5 Mg/3 Ml Neb Soln) Confirm Administered Dose 3 ml .ROUTE .STK-MED ONE Stop: 01/02/21 05:59 Last Admin: 01/02/21 13:25 Dose: Not Given Documented by: Azithromycin (Azithromycin 250 Mg Tab) 500 mg PO ONETIME ONE Stop: 01/02/21 10:31 Last Admin: 01/02/21 10:43 Dose: 500 mg Documented by: Diphenhydramine HCl (Diphenhydramine 50 Mg/Ml Sdv) 50 mg IVPUSH ONETIME ONE Stop: 01/03/21 10:31 Last Admin: 01/03/21 10:53 Dose: 50 mg Documented by: Furosemide (Furosemide 20 Mg/2 Ml Vial) 20 mg IVPUSH ONETIME ONE Stop: 01/03/21 14:01 Last Admin: 01/03/21 15:12 Dose: 20 mg Documented by: Sodium Chloride (Normal Saline) 100 mls @ 3 mls/sec IV ASDIRECTED [facility] Stop: 01/03/21 11:01 Last Admin: 01/03/21 11:46 Dose: 3 mls/sec Documented by: Iopamidol (Iopamidol 755 Mg/Ml 100 Ml Bottle) 100 ml IV . DIRECTED [facility] Stop: 01/03/21 11:01 Last Admin: 01/03/21 11:46 Dose: 80 ml Documented by: Methylprednisolone Sodium Succinate (Methylprednisolone Sodium Succinate 125 Mg/2 Ml Sdv) 125 mg IVPUSH ONETIME ONE Stop: 01/02/21 05:55 Last Admin: 01/02/21 06:09 Dose: 125 mg Documented by: Methylprednisolone Sodium Succinate (Methylprednisolone Sodium Succinate 125 Mg/2 Ml Sdv) 62.5 mg IVPUSH ONETIME ONE Stop: 01/03/21 10:31 Last Admin: 01/03/21 10:53 Dose: 62.5 mg Documented by: Potassium Chloride (Potassium Chloride 20 Meq Tab.Er) 40 meq PO ONETIME ONE Stop: 01/02/21 10:31 Last Admin: 01/02/21 10:44 Dose: 40 meq Documented by: Prednisone (Prednisone 20 Mg Tab) 20 mg PO ONETIME ONE Stop: 01/02/21 12:01 Last Admin: 01/02/21 14:30 Dose: 20 mg Documented by: Prednisone (Prednisone 20 Mg Tab) 40 mg PO WITHBREAKFAST [facility] Last Admin: 01/03/21 08:03 Dose: 40 mg Documented by: Sodium Chloride (Sodium Chloride 0.9% 10 Ml Sdv) 10 ml FLUSH ONETIME ONE Stop: 01/03/21 10:23 Last Admin: 01/03/21 13:31 Dose: 10 ml Documented by:
== END 2021-01-04 10:25 | disposition home or self-care (01) ==
LOC: JP.ED 05:51 → JP.MS 09:13
PROVIDERS: ADMIT Internal Medicine; ATTEND Internal Medicine
DX: J44.1 Chronic obstructive pulmonary disease with (acute) exacerbation (principal); J96.01 Acute respiratory failure with hypoxia; E03.9 Hypothyroidism, unspecified; K21.9 Gastro-esophageal reflux disease without esophagitis; F17.210 Nicotine dependence, cigarettes, uncomplicated; I50.22 Chronic systolic (congestive) heart failure; Z20.822 Contact with and (suspected) exposure to COVID-19; Z88.8 Allergy status to other drugs, medicaments and biological substances; Z98.890 Other specified postprocedural states; Z79.899 Other long term (current) drug therapy
CPT/HCPCS: 0241U; 36415; 36600; 71045; 71275; 80048; 80053; 82803; 84484; 85025; 85027; 85379; 93005; 94640; 96374; 99285; A9270; J1200; J1940; J2930; J7512; Q9967; 96375; 96376; G0378; J7620-GY